=== PATIENT | male | born 1970 | race Caucasian/White ===

== ENCOUNTER 2016-08-18 19:51 | Emergency (ER) | payer OTHER ==
[~2016-08-18] VITALS: Ht 175.3 cm; Wt 104.3 kg
[~2016-08-18 19:51] MED LIST: ASPIRIN EC81 M1 PO; BACLOFEN10 M1 PO; CIPRO 500MG TA500 MG PO; COUMADIN5 M2 PO; FIORICET 50-301 EACH PO; FIORICET-COD 51 EACH PO; FLEXERIL10 MG PO; GABAPENTIN100 M2 PO; GABAPENTIN300 M2 PO; HYDROCODONE/ACE1 TA1 PO; IBU800 MG PO; IBUPROFEN400 M1 PO; IMITREX50 M1 PO; KETOROLAC TROME10 M1 PO; LEVSIN-SL0.125 MG SL; LISINOPRIL5 M1 PO; LOVENOX80 MG/0.1 SC; MEDROL4 M2 PO; PEPCID20 M1 PO; PERCOCET 325 MG1 TA2 PO; PERCOCET 5-3251 EACH PO; PROPRANOLOL HC120 M1 PO; REGLAN10 M1 PO; SOMA250 M1 PO; TRAMADOL HCL50 M1 PO
--- NOTE | 2016-08-18 19:57 | ED CARDIAC/CP/PALPITATIONS ---
History of Present Illness General Chief Complaint: Syncope and Near-Syncope Stated Complaint: SYNCOPE,CP Source: patient, old records Exam Limitations: no limitations Vital Signs & Intake/Output Vital Signs & Intake/Output Vital Signs Date Time Temp Pulse Resp B/P Pulse O2 O2 Flow FiO2 Ox Delivery Rate 08/19 0306 98.0 77 18 127/73 96 Room Air 08/18 2347 97.8 76 18 130/74 94 Room Air 08/18 2256 96.2 75 16 136/85 96 Room Air 08/18 2002 97 Room Air Room Air 08/18 1959 98.2 88 20 163/92 97 Room Air ED Intake and Output 08/19 0000 08/18 1200 Intake Total Output Total Balance Patient 230 lb Weight Allergies Coded Allergies: NO KNOWN ALLERGIES (08/18/16) Triage Nurses Notes Reviewed? yes HPI: Patient was walking home from his friend's house when he had a sudden onset of sharp stabbing pain substernally. Patient states that the pain is so bad that it feels like these in the past help. Patient denies any palpitations. There is no shortness of breath. No aggravating or mitigating factors. There is no radiation. The pain is 10 out of 10. Patient denies any headache or blurry vision. There is no nausea or vomiting. There is no diaphoresis. Past History Travel History Traveled to [place] past 21 day No Medical History Any Pertinent Medical History? 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 SISTER FH: diabetes mellitus Hx Contributory? No Review of Systems Review of Systems Constitutional: Reports: no symptoms. EENTM: Reports: no symptoms. Respiratory: Reports: no symptoms. Cardiovascular: Reports: see HPI, chest pain. GI: Reports: no symptoms. Genitourinary: Reports: no symptoms. Musculoskeletal: Reports: no symptoms. Skin: Reports: no symptoms. Neurological/Psychological: Reports: see HPI. Hematologic/Endocrine: Reports: no symptoms. Immunologic/Allergic: Reports: no symptoms. All Other Systems: Reviewed and Negative Physical Exam Physical Exam General Appearance: well developed/nourished, alert, awake, anxious, moderate distress Head: atraumatic, normal appearance Eyes: Bilateral: PERRL, EOMI. Ears, Nose, Throat: normal pharynx, normal ENT inspection, hearing grossly normal Neck: normal inspection, supple, full range of motion Respiratory: normal breath sounds, chest non-tender, no respiratory distress, lungs clear Cardiovascular: regular rate/rhythm, normal peripheral pulses Gastrointestinal: normal bowel sounds, soft, non-tender, no organomegaly Back: normal inspection, normal range of motion Extremities: normal inspection, normal capillary refill, normal range of motion, no edema Neurologic/Psych: no motor/sensory deficits, awake, alert, oriented x 3, normal mood/affect Skin: intact, normal color, warm/dry Lymphatic: no anterior cervical aftab Core Measures ACS in differential dx? Yes ASA ordered for poss ACS? No-ACS ruled out Severe Sepsis Present: No Septic Shock Present: No Progress Differential Diagnosis: AMI, aortic dissection, cholecystitis, costochondritis, musculoskeletal pain, myocarditis, pericarditis, pneumonia, pneumothorax, pulmonary embolism Plan of Care: Orders Procedure Date/time Status TROPONIN LEVEL 08/19 0054 Complete Telemetry/Agricultural Appraiser 08/18 1956 Active URINALYSIS 08/18 1956 Complete TROPONIN LEVEL 08/18 1956 Complete D-DIMER 08/18 1956 Complete COMPREHENSIVE METABOLIC PANEL 08/18 1956 Complete CBC WITHOUT DIFFERENTIAL 08/18 1956 Complete EKG 08/18 1952 Active Laboratory Tests 08/19/16 0059: Troponin I < 0.01 08/18/16 2150: Urine Color YEL, Urine Clarity CLEAR, Urine pH 6.0, Ur Specific [place] 1.025, Urine Protein NEG, Urine Ketones NEG, Urine Nitrite NEG, Urine Bilirubin NEG, Urine Urobilinogen 1.0, Ur Leukocyte Esterase NEG, Ur Microscopic EXAM NOT REQUIRED, Urine Hemoglobin NEG, Urine Glucose NEG 08/18/16 2019: Anion Gap 14, Estimated GFR > 60, BUN/Creatinine Ratio 15.0, Glucose 90, Calcium 9.9, Total Bilirubin 0.5, AST 32, ALT 43, Alkaline Phosphatase 58, Troponin I < 0.01, Total Protein 7.1, Albumin 4.5, Globulin 2.6, Albumin/Globulin Ratio 1.7, D-Dimer < 200, CBC w Diff NO MAN DIFF REQ, RBC 5.02, MCV 85.6, MCH 28.5, RDW 13.4, MPV 8.9, Gran % 60.2, Lymphocytes % 27.9, Monocytes % 8.2, Eosinophils % 3.4, Basophils % 0.3, Absolute Granulocytes 4.1, Absolute Lymphocytes 1.9, Absolute Monocytes 0.6, Absolute Eosinophils 0.2, Absolute Basophils 0, PUBS MCHC 33.2 Diagnostic Imaging: Viewed by Me: Radiology Read. Discussed w/RAD: Radiology Read. CXR Impression: PATIENT: PAYTON HERNANDEZ PRESENT AGE: 45 PATIENT ACCOUNT NO: [id number] : 71 LOCATION: [facility] ORDERING PHYSICIAN: JASSI ALONSO MD SERVICE DATE: 08/18/16 EXAM TYPE: RAD - XRY- PORTABLE CHEST XRAY EXAMINATION: XR PORTABLE CHEST CLINICAL INFORMATION: Chest pain COMPARISON: Chest x-ray 01/15/2016 TECHNIQUE: Portable AP portable view of the chest was obtained. 8:28 PM FINDINGS: No significant abnormality is noted involving the heart, lungs, mediastinum, bony thorax or soft tissues. IMPRESSION : Normal chest. DICTATED BY: OSKAR ESPOSITO MD DATE/TIME DICTATED:08/18/162043 EDITORIAL SPECIALIST:CICI DATE/TIME TRANSCRIBED:08/18/162043 CONFIDENTIAL, DO NOT COPY WITHOUT APPROPRIATE AUTHORIZATION. <Electronically signed in Other Vendor System> SIGNED BY: OSKAR ESPOSITO MD 08/18/162047 Initial ED EKG: NSR, no ST T wave changes Prior EKG: unchanged Rhythm Strip: normal sinus rhythm Departure Departure Disposition: HOME OR SELF CARE Condition: Stable Clinical Impression Primary Impression: Chest pain, unspecified Referrals: Christiano SORIA MD, MD,MARCOS (PCP/Family) Additional Instructions: FOLLOW UP WITH DR. SORIA RETURN FOR ANY CONCERNS Departure Forms: Customer Survey General Discharge Information Critical Care Note Critical Care Note Critical Care Time: non-applicable
[2016-08-18 20:30] LABS: ABSOLUTE BASOPHIL COUNT 0 /CUMM (0.0-0.2); ABSOLUTE EOSINOPHIL COUNT 0.2 /CUMM (0.0-0.7); ABSOLUTE GRANULOCYTE CT 4.1 /CUMM (1.4-6.5); ABSOLUTE LYMPH COUNT 1.9 /CUMM (1.2-3.4); ABSOLUTE MONOCYTE COUNT 0.6 /CUMM (0.10-0.60); BASOPHIL % 0.3 % (0.0-2.0); EOSINOPHIL % 3.4 % (0-5); GRANULOCYTE % 60.2 % (42.2-75.2); MEAN CORPUSCULAR HGB 28.5 PG (27.0-31.0); MEAN CORPUSCULAR HGB CONC 33.2 G/DL (33.0-37.0); MEAN CORPUSCULAR VOLUME 85.6 FL (80.0-94.0); MEAN PLATELET VOLUME 8.9 FL (7.4-10.4); PLATELET COUNT 191 /CUMM (130-400); RBC DISTRIBUTION WIDTH 13.4 % (11.5-14.5); RED BLOOD CELL CT 5.02 /CUMM (4.70-6.10); WHITE BLOOD CELL COUNT 6.8 /CUMM (4.8-10.8)
--- NOTE | 2016-08-18 20:48 | RADIOLOGY REPORT ---
EXAMINATION: XR PORTABLE CHEST CLINICAL INFORMATION: Chest pain COMPARISON: Chest x-ray 01/15/2016 TECHNIQUE: Portable AP portable view of the chest was obtained. 8:28 PM FINDINGS: No significant abnormality is noted involving the heart, lungs, mediastinum, bony thorax or soft tissues. IMPRESSION: Normal chest.
[2016-08-19 06:35] VITALS: BP 140/79
== END 2016-08-19 06:44 ==
LOC: ERH 19:51
PROVIDERS: Emergency Medicine
DX: R07.9 Chest pain, unspecified (principal)
CPT/HCPCS: 81003; 93005; 93010; 96374; J1885

== ENCOUNTER 2016-10-17 10:01 | Emergency (ER) | payer OTHER ==
[~2016-10-17] VITALS: Ht 175.3 cm; Wt 104.3 kg
[2016-10-17 10:22] LABS: ABSOLUTE BASOPHIL COUNT 0 /CUMM (0.0-0.2); ABSOLUTE EOSINOPHIL COUNT 0.4 /CUMM (0.0-0.7); ABSOLUTE LYMPH COUNT 1.2 /CUMM (1.2-3.4); ABSOLUTE MONOCYTE COUNT 0.5 /CUMM (0.10-0.60); BASOPHIL % 0.3 % (0.0-2.0); EOSINOPHIL % 7.4 % (0-5); HEMATOCRIT 44.1 % (42-52); MEAN CORPUSCULAR HGB 29.2 PG (27.0-31.0); MEAN CORPUSCULAR HGB CONC 34.5 G/DL (33.0-37.0); MEAN CORPUSCULAR VOLUME 84.6 FL (80.0-94.0); MEAN PLATELET VOLUME 8.9 FL (7.4-10.4); PLATELET COUNT 211 /CUMM (130-400); RBC DISTRIBUTION WIDTH 12.8 % (11.5-14.5); RED BLOOD CELL CT 5.22 /CUMM (4.70-6.10)
--- NOTE | 2016-10-17 12:17 | CT SCAN REPORT ---
EXAMINATION: CT HEAD WITHOUT CONTRAST CLINICAL INFORMATION: Left-sided numbness. COMPARISON: CT scan of the head 01/29/2016. TECHNIQUE: Contiguous axial imaging was performed from the skull base to vertex without intravenous administration of contrast. DLP: 614.15 mGy-cm FINDINGS: There is no evidence of acute intracranial hemorrhage or territorial infarction. No abnormal mass effect or midline shift is seen. Peterson to white matter differentiation is well preserved. No extra-axial fluid collections are identified. The ventricles are normal in size. There is no abnormal attenuation within the brain parenchyma. The osseous structures and soft tissues are normal. The mastoid air cells and visualized portions of the paranasal sinuses are well aerated. IMPRESSION: 1. There are no acute bleeds or territorial infarcts.
--- NOTE | 2016-10-17 12:21 | ED NEURO DEFICIT/STROKE ---
History of Present Illness General Chief Complaint: General Adult Stated Complaint: LT SIDE OF BODY IS NUMB SINCE LAST NIGHT Source: patient Exam Limitations: no limitations Vital Signs & Intake/Output Vital Signs & Intake/Output Vital Signs Date Time Temp Pulse Resp B/P B/P Pulse O2 O2 Flow FiO2 Mean Ox Delivery Rate 10/17 1418 97.1 77 18 144/87 97 Room Air ED Intake and Output 10/18 0000 10/17 1200 Intake Total Output Total Balance Patient 230 lb Weight Allergies Coded Allergies: NO KNOWN ALLERGIES (08/18/16) Reconcile Medications No Known Home Medications Triage Note: PT STATES THAT HE HAS A HISTORY OF CVA AND THAT SINCE LAST PM HE HAS HAD L SIDE NUMBNESS, PT STATES THAT HE ALSO HAS 8/10 L SIDE NECK PAIN. BILATERAL HAND GRASP EQUAL NO DRIFT, SMILE EQUAL ON BOTH SIDES. DENIES CP/SOB. Triage Nurses Notes Reviewed? yes HPI: This patient is a 45-year-old male with a past medical history including CVA who presented to the emergency department today for evaluation of left-sided numbness times one day. The patient reported that the pain started today and he is not doing anything in particular when it began. He reported that it starts in the left side of his head and travels and left-sided neck, to his left arm, and down his left side to his left hip. He denied any numbness or tingling in his extremities. The patient denied any difficulty with speech, weakness, decreased movement, chest pain, difficulty breathing, jaw pain, arm pain, abdominal pain, nausea, vomiting, back pain, headaches, or visual changes. This patient is not on any blood thinners at this time. (MAYDA MALDONADO,ROOSEVELT) Past History Travel History Traveled to [place] past 21 day No Medical History Any Pertinent Medical History? 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 SISTER FH: diabetes mellitus Hx Contributory? No (ROOSEVELT OHARA PA-C) Review of Systems Review of Systems Constitutional: Reports: no symptoms. EENTM: Reports: no symptoms. Respiratory: Reports: no symptoms. Cardiovascular: Reports: no symptoms. GI: Reports: no symptoms. Genitourinary: Reports: no symptoms. Musculoskeletal: Reports: no symptoms. Skin: Reports: no symptoms. Neurological/Psychological: Reports: see HPI. All Other Systems: Reviewed and Negative (ROOSEVELT OHARA PA-C) Physical Exam Physical Exam General Appearance: well developed/nourished, no apparent distress, alert, awake Cranial Nerves: normal hearing, normal speech, PERRL Comments: Well-developed well-nourished person in no acute distress HEENT: Normal EENT exam, head normocephalic, moist mucous membranes PERRLA bilaterally Neck: Supple, no lymphadenopathy. Full range of motion. No midline tenderness. Mild tenderness to palpation over the left cervical paraspinal musculature Back: Normal inspection. Normal gait Cardiovascular: Regular rate and rhythm with no murmurs, rubs, or gallops. No carotid bruits or JVD Respiratory: Chest nontender. No respiratory distress. Breath sounds clear to auscultation bilaterally with no wheezes, rales, rhonchi Extremity: Normal and equal pulses Neuro: Alert oriented x3, cranial nerves II through XII grossly intact. No aphasia, no facial droop, no unilateral weakness. No pronator drift. 5 out of 5 muscular strength in all extremities. No focal neurologic deficits Skin: No appreciable rash on exposed skin, skin is warm and dry. Psych: Mood and affect is normal, memory and judgment is normal. Core Measures CVA/TIA Diagnosis: No Severe Sepsis Present: No Septic Shock Present: No (ROOSEVELT OHARA PA-C) Progress Differential Diagnosis: acute glaucoma, Molina's Palsy, drug intoxication, electrolyte imbalance, encephalitis, hypoglycemia, intracranial Hem., intracranial mass/tumor, meningitis, migraine MARI, seizure disorder, stroke, subarachnoid Hem., vertebrobasilar insuff., radiculopathy Plan of Care: Orders Procedure Date/time Status Add-on Test (ER Only) 10/17 1216 Active EKG 10/17 1216 Active THYROID STIMULATING HORMONE 10/17 1014 Complete LIPID PANEL 10/17 1014 Complete FREE T4 10/17 1014 Complete TROPONIN LEVEL 10/17 1011 Complete COMPREHENSIVE METABOLIC PANEL 10/17 1011 Complete CBC WITHOUT DIFFERENTIAL 10/17 1011 Complete Laboratory Tests 10/17/16 1014: Anion Gap 16, Estimated GFR > 60, BUN/Creatinine Ratio 12.5, Glucose 97, Calcium 9.5, Total Bilirubin 0.7, AST 37, ALT 68, Alkaline Phosphatase 63, Troponin I < 0.01, Total Protein 7.4, Albumin 4.9, Globulin 2.5, Albumin/Globulin Ratio 2.0, Triglycerides 90, Cholesterol 145, LDL Cholesterol, Calc 86, HDL Cholesterol 41, Cholesterol/HDL Ratio 4, TSH 1.880, Free T4 1.15, CBC w Diff NO MAN DIFF REQ, RBC 5.22, MCV 84.6, MCH 29.2, RDW 12.8, MPV 8.9, Gran % 59.0, Lymphocytes % 23.8 , Monocytes % 9.5 H, Eosinophils % 7.4 H, Basophils % 0.3, Absolute Granulocytes 3.0, Absolute Lymphocytes 1.2, Absolute Monocytes 0.5, Absolute Eosinophils 0.4, Absolute Basophils 0, PUBS MCHC 34.5 Diagnostic Imaging: Viewed by Me: CT Scan, Ultrasound. Discussed w/RAD: CT Scan, Ultrasound. Radiology Impression: PATIENT: PAYTON HERNANDEZ PRESENT AGE: 45 PATIENT ACCOUNT NO: [id number] : 71 LOCATION: [facility] ORDERING PHYSICIAN: ALAN SANDOVAL DO SERVICE DATE: 10/17/16 EXAM TYPE: CAT - CT HEAD WO IV CONTRAST EXAMINATION: CT HEAD WITHOUT CONTRAST CLINICAL INFORMATION: Left-sided numbness. COMPARISON: CT scan of the head 01/28. TECHNIQUE: Contiguous axial imaging was performed from the skull base to vertex without intravenous administration of contrast. DLP: 614.15 mGy-cm FINDINGS: There is no evidence of acute intracranial hemorrhage or territorial infarction. No abnormal mass effect or midline shift is seen. Peterson to white matter differentiation is well preserved. No extra-axial fluid collections are identified. The ventricles are normal in size. There is no abnormal attenuation within the brain parenchyma. The osseous structures and soft tissues are normal. The mastoid air cells and visualized portions of the paranasal sinuses are well aerated. IMPRESSION: 1. There are no acute bleeds or territorial infarcts. DICTATED BY: KASSIDY MOSELEY MD DATE/TIME DICTATED:10/17/161207 METALLURGICAL ENGINEER :CICI DATE/TIME TRANSCRIBED:10/17/161207 CONFIDENTIAL, DO NOT COPY WITHOUT APPROPRIATE AUTHORIZATION. <Electronically signed in Other Vendor System> SIGNED BY: KASSIDY MOSELEY MD 10/17/16 1217, PATIENT: PYATON HERNANDEZ PRESENT AGE: 45 PATIENT ACCOUNT NO: [id number] : LOCATION: [facility] ORDERING PHYSICIAN: ROOSEVELT OHARA PA-C SERVICE DATE: 10/17/16 EXAM TYPE: US - [id number] DOPPLER EXAMINATION: DUPLEX BILATERAL CAROTID ULTRASOUND CLINICAL INFORMATION: Left-sided numbness; question carotid dissection. COMPARISON: CTA neck dated 02/22/2016. TECHNIQUE: Real-time ultrasound and Doppler techniques (integrating B-mode 2D vascular images, Doppler spectral analysis and color flow Doppler imaging) were utilized to interrogate the extracranial carotid and vertebral arteries bilaterally. FINDINGS: Right side: 1. There is no significant hyperechoic plaque in the ECA/ ICA region. 2. The common carotid artery velocity is 135 cm/s. There is no significant diameter reduction on grayscale or color images. 3. The proximal internal carotid artery velocities are 108 cm/s systolic and 35 cm/s diastolic. 4. The external carotid artery velocity is 133 cm/s. Left side: 1. There is no significant hyperechoic plaque in the ECA/ICA region. 2. The common carotid artery velocity is 130 cm/s. There is no significant diameter reduction on grayscale or color images. 3. The proximal internal carotid artery velocities are 106 cm/s systolic and 27 cm/s diastolic. 4. The external carotid artery velocity is 142 cm/s. ADDITIONAL FINDINGS: The vertebral arteries show antegrade flow. The previously noted right vertebral artery dissection is not identified with this modality. IMPRESSION: 1. RIGHT: Minimal, nonhemodynamically significant stenosis of the proximal right internal carotid artery corresponding to a 0-49% stenosis by velocity criteria. 2. LEFT: Minimal, nonhemodynamically significant stenosis of the proximal left internal carotid artery corresponding to a 0-49% stenosis by velocity criteria. 3. Antegrade flow is seen via the bilateral vertebral arteries. The previously noted right vertebral artery dissection is not presently redemonstrated with ultrasound. If of clinical concern, this could be further evaluated with a repeat CTA of the neck. DICTATED BY: ERICA HERR MD DATE/TIME DICTATED:10/17/161342 METALLURGICAL ENGINEER: CICI DATE/TIME TRANSCRIBED:10/17/161342 CONFIDENTIAL, DO NOT COPY WITHOUT APPROPRIATE AUTHORIZATION. <Electronically signed in Other Vendor System> SIGNED BY: ERICA HERR MD 10/17/16 1356, PATIENT: PAYTON HERNANDEZ PRESENT AGE: 45 PATIENT ACCOUNT NO: [id number] : LOCATION: [facility] ORDERING PHYSICIAN: ROOSEVELT OHARA PA-C SERVICE DATE: 10/17/16 EXAM TYPE: CAT - CT CERV SPINE WO IV CONTRAST EXAMINATION: CT CERVICAL SPINE WITHOUT CONTRAST CLINICAL INFORMATION: Left arm numbness. Assess for disc bulge. COMPARISON: CTA neck from 02/22/2016. TECHNIQUE: CT scanning of the cervical spine was performed without contrast. Coronal and sagittal reformatted images were generated. DLP: 377 mGy-cm FINDINGS: There is no evidence of fracture or dislocation. Vertebral body height is maintained. Sagittal alignment is maintained. There is no prevertebral soft tissue swelling. The atlantoaxial and atlantooccipital articulations are normal. There is preservation of the intervertebral disc heights. There is mild endplate spurring at C5-C6. The visualized mastoid air cells and middle ear cavities as well as the sphenoid sinuses are clear. The imaged portions of the intracranial compartment appear unremarkable. No paraspinal abnormalities. No cervical adenopathy. No focal thyroid lesions. The lung apices appear clear. The imaged pharyngeal and laryngeal contours appear unremarkable. SPINAL LEVELS: C2-C3: Normal disc morphology. No evidence of canal or foraminal stenosis. C3-C4: Shallow central disc protrusion without significant canal stenosis. The foramina are well maintained. C4-C5: There is uncovertebral hypertrophy and a shallow central protrusion. Minor flattening of the canal and mild bilateral foraminal stenosis. C5-C6: There is a partially calcified disc protrusion in the right lateral region. Mild uncovertebral hypertrophy. There is mild to moderate right- sided canal stenosis. Mild right greater than left foraminal stenosis. C6-C7: There is streak artifact in this region. No bony canal stenosis is visualized. There is mild bilateral uncovertebral hypertrophy which mild to moderately narrows the foramina, right more than left. C7-T1: Mild disc osteophyte complex without obvious canal or foraminal stenosis. In the upper thoracic region there is calcification of the ligamentum flavum which is most notable at the T2-T3 level. This serves to moderately narrow the spinal canal. There may be some mass effect on the cord. IMPRESSION: Cervical spondylosis is most notable at C5-C6 where a right-sided partially calcified disc protrusion mild to moderately narrows the right side of the canal. In the upper thoracic spine at T2-T3 there is nodular calcification of the ligamentum flavum which appears to moderately narrow the canal at this level. There is suspected to be some mass effect on the thoracic cord at this level. Intrathecal detail would be better assessed with MR. DICTATED BY: ZAK TRENT MD DATE/TIME DICTATED:10/17/161347 METALLURGICAL ENGINEER:CICI DATE/TIME TRANSCRIBED:10/17/161347 CONFIDENTIAL, DO NOT COPY WITHOUT APPROPRIATE AUTHORIZATION. <Electronically signed in Other Vendor System> SIGNED BY: ZAK TRENT MD 10/17/16 9454 Initial ED EKG: normal axis, normal intervals, normal p-waves, normal QRS complex, normal sinus rhythm, no ST T wave changes, 70 BPM Comments: 10/17/2016 2:21:46 PM: As at the patient's bedside for reevaluation. He reported that he is feeling better. He reported that he is still having some numbness in the left side of his face, but reported, "I think I'm getting a cold sore." Unremarkable imaging studies. Unremarkable laboratory studies. I attempted to the patient on all of these. I discussed this patient with Dr. Richter who reported that he should be given a neurologist for close follow-up and started on aspirin. I counseled the patient on the importance of returning for any worsening symptoms (MAYDA MALDONADO,ROOSEVELT) Departure Departure Disposition: HOME OR SELF CARE Condition: Stable Clinical Impression Primary Impression: Paresthesia Referrals: MICHAEL JOHNSON,ERICA REBOLLEDO MD,MARCOS (PCP/Family) Additional Instructions: Please continue taking aspirin daily. Please follow-up with the neurologist whose information has been provided to in this packet for further evaluation; please call to schedule an appointment today. Return immediately for any worsening symptoms or concerns. Departure Forms: Customer Survey General Discharge Information Prescriptions: Current Visit Scripts No Known Home Medications (MAYDA MALDONADO,ROOSEVELT) PA/PALEONTOLOGICAL HELPER Co-Sign Statement Statement: ED Attending supervision documentation- [] I saw and evaluated the patient. I have also reviewed all the pertinent lab results and diagnostic results. I agree with the findings and the plan of care as documented in the PA's/PALEONTOLOGICAL HELPER's documentation. [X] I have reviewed the ED Record and agree with the PA's/PALEONTOLOGICAL HELPER's documentation. [] Additions or exceptions (if any) to the PAs/PALEONTOLOGICAL HELPER's note and plan are summarized below: [] (MILI JOHNSON,AVIVA)
--- NOTE | 2016-10-17 13:56 | ULTRASOUND REPORT ---
EXAMINATION: DUPLEX BILATERAL CAROTID ULTRASOUND CLINICAL INFORMATION: Left-sided numbness; question carotid dissection. COMPARISON: CTA neck dated 02/22/2016. TECHNIQUE: Real-time ultrasound and Doppler techniques (integrating B-mode 2D vascular images, Doppler spectral analysis and color flow Doppler imaging) were utilized to interrogate the extracranial carotid and vertebral arteries bilaterally. FINDINGS: Right side: 1. There is no significant hyperechoic plaque in the ECA/ICA region. 2. The common carotid artery velocity is 135 cm/s. There is no significant diameter reduction on grayscale or color images. 3. The proximal internal carotid artery velocities are 108 cm/s systolic and 35 cm/s diastolic. 4. The external carotid artery velocity is 133 cm/s. Left side: 1. There is no significant hyperechoic plaque in the ECA/ICA region. 2. The common carotid artery velocity is 130 cm/s. There is no significant diameter reduction on grayscale or color images. 3. The proximal internal carotid artery velocities are 106 cm/s systolic and 27 cm/s diastolic. 4. The external carotid artery velocity is 142 cm/s. ADDITIONAL FINDINGS: The vertebral arteries show antegrade flow. The previously noted right vertebral artery dissection is not identified with this modality. IMPRESSION: 1. RIGHT: Minimal, nonhemodynamically significant stenosis of the proximal right internal carotid artery corresponding to a 0-49% stenosis by velocity criteria. 2. LEFT: Minimal, nonhemodynamically significant stenosis of the proximal left internal carotid artery corresponding to a 0-49% stenosis by velocity criteria. 3. Antegrade flow is seen via the bilateral vertebral arteries. The previously noted right vertebral artery dissection is not presently redemonstrated with ultrasound. If of clinical concern, this could be further evaluated with a repeat CTA of the neck.
--- NOTE | 2016-10-17 14:02 | CT SCAN REPORT ---
EXAMINATION: CT CERVICAL SPINE WITHOUT CONTRAST CLINICAL INFORMATION: Left arm numbness. Assess for disc bulge. COMPARISON: CTA neck from 02/22/2016. TECHNIQUE: CT scanning of the cervical spine was performed without contrast. Coronal and sagittal reformatted images were generated. DLP: 377 mGy-cm FINDINGS: There is no evidence of fracture or dislocation. Vertebral body height is maintained. Sagittal alignment is maintained. There is no prevertebral soft tissue swelling. The atlantoaxial and atlantooccipital articulations are normal. There is preservation of the intervertebral disc heights. There is mild endplate spurring at C5-C6. The visualized mastoid air cells and middle ear cavities as well as the sphenoid sinuses are clear. The imaged portions of the intracranial compartment appear unremarkable. No paraspinal abnormalities. No cervical adenopathy. No focal thyroid lesions. The lung apices appear clear. The imaged pharyngeal and laryngeal contours appear unremarkable. SPINAL LEVELS: C2-C3: Normal disc morphology. No evidence of canal or foraminal stenosis. C3-C4: Shallow central disc protrusion without significant canal stenosis. The foramina are well maintained. C4-C5: There is uncovertebral hypertrophy and a shallow central protrusion. Minor flattening of the canal and mild bilateral foraminal stenosis. C5-C6: There is a partially calcified disc protrusion in the right lateral region. Mild uncovertebral hypertrophy. There is mild to moderate right-sided canal stenosis. Mild right greater than left foraminal stenosis. C6-C7: There is streak artifact in this region. No bony canal stenosis is visualized. There is mild bilateral uncovertebral hypertrophy which mild to moderately narrows the foramina, right more than left. C7-T1: Mild disc osteophyte complex without obvious canal or foraminal stenosis. In the upper thoracic region there is calcification of the ligamentum flavum which is most notable at the T2-T3 level. This serves to moderately narrow the spinal canal. There may be some mass effect on the cord. IMPRESSION: Cervical spondylosis is most notable at C5-C6 where a right-sided partially calcified disc protrusion mild to moderately narrows the right side of the canal. In the upper thoracic spine at T2-T3 there is nodular calcification of the ligamentum flavum which appears to moderately narrow the canal at this level. There is suspected to be some mass effect on the thoracic cord at this level. Intrathecal detail would be better assessed with MR.
[2016-10-17 14:18] VITALS: BP 144/87
== END 2016-10-17 14:30 ==
LOC: ERH 10:01
PROVIDERS: Emergency Medicine
DX: R20.2 Paresthesia of skin (principal)
CPT/HCPCS: 93005; 93010

== ENCOUNTER 2017-11-24 19:53 | Emergency (ER) | payer OTHER ==
[~2017-11-24] VITALS: Ht 175.3 cm; Wt 104.3 kg
[~2017-11-24 19:53] MED LIST changes: +ESGIC 50-325-41 EACH PO; +IBUPROFEN800 M1 PO; +MECLIZINE HCL25 MG PO; +PREDNISONE10 M2 PO
[2017-11-24 19:58] VITALS: BP 143/98
--- NOTE | 2017-11-24 21:51 | ED SKIN/ALLERGY COMPLAINT ---
History of Present Illness General Chief Complaint: Skin Rash/ Abcess Stated Complaint: ABSCESS TO L FOREARM,WENT TO [facility], NOW WORSE Source: patient Exam Limitations: no limitations Vital Signs & Intake/Output Vital Signs & Intake/Output Vital Signs Date Time Temp Pulse Resp B/P B/P Pulse O2 O2 Flow FiO2 Mean Ox Delivery Rate 11/24 1957 98.6 86 16 143/98 96 Room Air ED Intake and Output 11/25 0000 11/24 1200 Intake Total Output Total Balance Patient 230 lb Weight Weight Reported by Patient Measurement Method Allergies Coded Allergies: NO KNOWN ALLERGIES (08/18/16) Reconcile Medications Amoxicillin 875 MG TABLET 1 TAB PO BID ABSCESS Butalb/Acetaminophen/Caffeine (Esgic 50-325-40 MG Tablet) 50 MG-325 MG-40 MG TABLET 1 TAB PO Q6P PRN HEADACHE Ibuprofen 800 MG TABLET 1 TAB PO TID pain Meclizine HCl 25 MG TABLET 1 TAB PO Q6P PRN VERTIGO Sulfamethoxazole/Trimethoprim (Bactrim Ds Tablet) 800 MG-160 MG TABLET 1 TAB PO BID ABSCESS Triage Note: PT TO ED WITH REPORT OF ABSCESS TO LEFT FOREARM. SEEN AT URGENT CARE YESTERDAY AND PRESCRIBED ORAL ANTIBIOTIC. HAS TAKEN ONE DOSE, REPORTS SWELLING WORSE TODAY AND NOW HAS DRAINAGE. DENIES FEVERS/CHILLS. Triage Nurses Notes Reviewed? yes Onset: Abrupt Duration: day(s): (3), constant, continues in ED, getting worse Timing: single episode today Severity: mild, moderate Severity Numbers: 5 Location: extremities Possible Factors: ABSCESS No Modifying Factors: none HPI: 46-year-old male history of hypertension presents for evaluation of an abscess to his left forearm. Patient states he first noticed this 2 or 3 days ago and has gotten worse. He went to an urgent care yesterday and was prescribed antibiotics. It was not drained. He states that today he noticed that there is some drainage coming from the area. Denies any fever. He is not a diabetic. No trauma to the area. Past History Travel History Traveled to [place] past 21 day No Medical History Any Pertinent Medical History? 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 SISTER FH: diabetes mellitus Hx Contributory? No Review of Systems Review of Systems Constitutional: Reports: no symptoms. EENTM: Reports: no symptoms. Respiratory: Reports: no symptoms. Cardiovascular: Reports: no symptoms. GI: Reports: no symptoms. Genitourinary: Reports: no symptoms. Musculoskeletal: Reports: no symptoms. Skin: Reports: see HPI (ABSCESS). Neurological/Psychological: Reports: no symptoms. Hematologic/Endocrine: Reports: no symptoms. Immunologic/Allergic: Reports: no symptoms. All Other Systems: Reviewed and Negative Physical Exam Physical Exam General Appearance: well developed/nourished, no apparent distress, alert, awake Head: atraumatic, normal appearance Eyes: Bilateral: normal appearance, EOMI. Ears, Nose, Throat: hearing grossly normal Neck: normal inspection, supple, full range of motion Respiratory: normal breath sounds, chest non-tender, no respiratory distress, lungs clear Cardiovascular: regular rate/rhythm, normal peripheral pulses Peripheral Pulses: 2+ radial (R), 2+ radial (L) Back: normal inspection, normal range of motion Extremities: normal inspection, normal range of motion, no edema Neurologic/Psych: no motor/sensory deficits, awake, alert, oriented x 3, normal gait Skin: intact, normal color, warm/dry Skin Problem Location: upper extremities (LEFT FOREARM) Skin Problem Character: abcess, THERE IS A 2 CM DIAMETER AREA OF INDURATION WITH SMALL AMOUNT OF ERYTHEMA. tHERE IS SOME CENTRAL FOCAL FLUCTUANCE. Lymphatic: no anterior cervical aftab Progress Differential Diagnosis: abscess/cellulitis, contact dermatitis, urticaria Plan of Care: Orders Procedure Date/time Status EXTREMETIES CULTURE 11/24 2150 Active Microbiology 11/25 2155 EXTREMITIE: Culture & Sensitivity - RES 11/25 2155 EXTREMITIE: Gram Stain - RES Patient seen and evaluated. He is here with an abscess to the left forearm. There is cleaned with Betadine 1% T without epi was used for local pain control. 11 blade used to open the area of focal fluctuance. Small amount of pallor discharge obtained. Culture obtained. Due to large amount of surrounding induration the area was packed. Patient will be started on amoxicillin and Bactrim. Advised him to continue whatever antibiotic he was given. Keep the area clean and dry and change dressing once daily. Return in 2 or 3 days for packing removal. Discussed return precautions. Patient agrees the plan Departure Departure Disposition: HOME OR SELF CARE Condition: Stable Clinical Impression Primary Impression: Abscess Referrals: Amalia JOHNSON,Shaquille Cooper (PCP/Family) Additional Instructions: Take both antibiotics as directed for the full course. Tylenol ibuprofen for pain. Change dressing once daily. Return for a wound check and packing removal in 2 days. If YOU notice spreading redness worsening swelling worsening pain return immediately. Departure Forms: Customer Survey General Discharge Information Prescriptions: Current Visit Scripts Sulfamethoxazole/Trimethoprim (Bactrim Ds Tablet) 1 TAB PO BID #20 TAB Amoxicillin 1 TAB PO BID #20 TAB Procedures Incision and Drainage Site: LEFT FOREARM Blade Size: 11 I & D Procedure: Yes: betadine prep, sterile drapes applied, sterile dressing applied, wick placed.
[2017-11-24] MEDS ORDERED: AMOXICILLIN875 M1 PO (21:53)
[2017-11-24] MEDS ORDERED: BACTRIM DS TAB1 EACH PO (21:53)
== END 2017-11-24 21:58 ==
LOC: ERH 19:53
DX: L02.414 Cutaneous abscess of left upper limb (principal)
CPT/HCPCS: 87070; 87147; J2001